=== PATIENT | female | born 1980 | race African-American/Black ===

== ENCOUNTER → 2017-11-19 | Outpatient (CLI) | payer OTHER ==
--- NOTE | 2017-11-19 14:21 | 2DMMODE ---
[place] [address] 2 D/M-MODE ECHOCARDIOGRAM Name: YANELY RODRIGUEZ Room: [facility]#: [id number] Admission: 11/19/17 Attend Phys: Óscar Manzanares, Discharge: Date of : 76 Date of Service: 11/19/17 1420 Report #: [id number] THIS REPORT FOR: //name// APPROVED REPORT Study performed: 11/19/2017 13:16:43 EXAM: Comprehensive 2D, Doppler, and color-flow Echocardiogram Patient Location: Out-Patient Status: routine BSA: 1.81 HR: 81 bpm BP: 111/70 mmHg Other Information Study Quality: Good Indications Palpitations 2D Dimensions LVEF(%): 72.13 (>50%) IVSd: 9.29 (7-11mm) LVOT Diam: 18.03 (18-24mm) LVDd: 38.95 mm PWd: 8.77 (7-11mm) Ascending Ao: 26.61 (22-36mm) LVDs: 23.10 (25-40mm) Aortic Root: 25.16 mm Jimenez's LVEF: 72.13 % Volumes Left Atrial Volume (Systole) LA ESV Index: 16.80 mL/m2 Aortic Valve AoV Peak Xavier.: 1.36 m/s AO Peak Gr.: 7.36 mmHg LVOT Max P.84 mmHg AO Mean Gr.: 3.90 mmHg LVOT Mean P.89 mmHg LVOT Max V: 0.98 m/s AO V2 VTI: 24.36 cm LVOT Mean V: 0.63 m/s EBONI (VTI): 2.07 cm2 LVOT V1 VTI: 19.79 cm Mitral Valve E/A Ratio: 1.20 MV Decel. Time: 192.69 [place] [address] 2 D/M-MODE ECHOCARDIOGRAM Name: YANELY RODRIGUEZ Room: [facility]#: [id number] Admission: 11/19/17 Attend Phys: Óscar Manzanares, Discharge: Date of : 76 Date of Service: 11/19/17 1420 Report #: [id number] MV E Max Xavier.: 0.88 m/s MV PHT: 55.88 ms MVA (PHT): 3.94 cm2 TDI E/Lateral E': 4.89 E/Medial E': 8.00 Medial E' Xavier.: 0.11 m/s Lateral E' Xavier.: 0.18 m/s Pulmonary Valve PV Peak Xavier.: 1.27 m/s PV Peak Gr.: 6.43 mmHg Left Ventricle The left ventricle is normal size. There is normal LV segmental wall motion. There is normal left ventricular wall thickness. Left ventricular systolic function is normal. LVEF is 60-65%. The left ventricular diastolic function is normal. Right Ventricle The right ventricle is normal size. The right ventricular systolic function is normal. Atria The left atrium size is normal. The right atrium size is normal. Aortic Valve The aortic valve is normal in structure. No aortic regurgitation is present. There is no aortic valvular stenosis. Mitral Valve The mitral valve is normal in structure. There is no mitral valve regurgitation noted. No evidence of mitral valve stenosis. Tricuspid Valve The tricuspid valve is normal in structure. There is no tricuspid valve regurgitation noted. Pulmonic Valve The pulmonary valve is normal in structure. There is no pulmonic valvular regurgitation. Great Vessels The aortic root is normal in size. IVC is normal in size and collapses with >50% [place] [address] 2 D/M-MODE ECHOCARDIOGRAM Name: YANELY RODRIGUEZ Room: [facility]#: [id number] Admission: 11/19/17 Attend Phys: Óscar Manzanares, Discharge: Date of : 76 Date of Service: 11/19/17 1420 Report #: [id number] Pericardium There is no pericardial effusion. <Conclusion> The left ventricle is normal size. There is normal left ventricular wall thickness. Left ventricular systolic function is normal. LVEF is 60-65%. The left ventricular diastolic function is normal. IVC is normal in size and collapses with >50% inspiration <ELECTRONICALLY SIGNED> By: Glen Tyler MD, FACC 11/19/17 1420 1420 142 Glen Tyler MD, FACC /INF
== END ==
LOC: M.CRD 12:55
DX: R00.2 Palpitations (principal)

== ENCOUNTER 2018-06-01 19:50 | Emergency (ER) | payer OTHER ==
[~2018-06-01] VITALS: Ht 165.1 cm; Wt 65.8 kg
[2018-06-01] MEDS ORDERED: ADDERALL 20 MG20 M1 PO (20:01)
[2018-06-01] MEDS ORDERED: PROAIR RESPICL90 MCG INH (20:02)
[2018-06-01] MEDS ORDERED: TOPAMAX 100 MG100 MG PO (20:02)
[2018-06-01] MEDS ORDERED: ALPRAZOLAM ER1 MG PO (20:03)
[2018-06-01] MEDS ORDERED: AMBIEN 10 MG TA10 MG PO (20:04)
[2018-06-01] MEDS ORDERED: ZANTAC300 MG PO (20:04)
[2018-06-01] MEDS ORDERED: TRAZODONE HCL100 MG PO (20:04)
[2018-06-01] MEDS ORDERED: FLONASE 0.05%50 MCG NASAL (20:05)
[2018-06-01] MEDS ORDERED: PROTONIX40 M1 PO (20:05)
[2018-06-01] MEDS ORDERED: ZOLOFT50 MG PO (20:06)
[2018-06-01 21:31] VITALS: BP 110/75
== END 2018-06-01 21:32 | disposition home or self-care (01) ==
LOC: M.ERS 19:50
DX: S09.8XXA Other specified injuries of head, initial encounter (principal); R42 Dizziness and giddiness; Z88.0 Allergy status to penicillin; Z90.710 Acquired absence of both cervix and uterus; W18.39XA Other fall on same level, initial encounter; Y92.89 Other specified places as the place of occurrence of the external cause; Y93.89 Activity, other specified; Y99.8 Other external cause status